=== PATIENT | female | born 2000 | race Caucasian/White ===

== ENCOUNTER 2020-07-03 10:43 | Emergency (ER) | payer OTHER ==
[2020-07-03 11:35] LABS: Bacteria/HPF 2+ HPF (None Seen); Bilirubin Negative (Negative); Blood, Urine Negative (Negative); Clarity Turbid (Clear); Glucose, Urine (Dipstick) 100 mg/dL (Negative); Ketone, Urine Negative (Negative); Leukocyte 250 Leu/uL (Negative); Nitrite Negative (Negative); Protein, Urine (Dipstick) Negative (Neg-Trace); RBC/HPF 0-3 HPF (0-3); Specific Gravity, Urine 1.012 (1.002-1.036); Squamous Epithelial 0-3 HPF (0-3); Urobilinogen Normal mg/dL (Less than 2); pH, Urine 6.5 (5.0-9.0)
[2020-07-03] MEDS ORDERED: Acetaminophen 500 MG TAB ONE (11:35)
[2020-07-03 11:46] LABS: Yeast-Hyphae Rare HPF (None Seen)
== END 2020-07-03 13:01 | disposition home or self-care (01) ==
LOC: ERS 10:43
DX: O99.891 Other specified diseases and conditions complicating pregnancy (principal); R10.9 Unspecified abdominal pain; F17.290 Nicotine dependence, other tobacco product, uncomplicated
CPT/HCPCS: 36415; 76856; 81003; 81015; 84702

== ENCOUNTER 2022-02-11 16:29 | Emergency (ER) | payer BC, OTHER | END 2022-02-11 17:20 | disposition home or self-care (01) | LOC: ERS 16:29 | DX: H66.91 Otitis media, unspecified, right ear (principal); F17.290 Nicotine dependence, other tobacco product, uncomplicated | CPT/HCPCS: 99282 ==

== ENCOUNTER 2024-01-26 08:18 | Emergency (ER) | payer OTHER ==
[2024-01-26] MEDS ORDERED: Acetaminophen 500 MG TAB ONE (08:41)
[2024-01-26] MEDS ORDERED: Lidocaine 4% Patch ONE (08:41)
== END 2024-01-26 09:30 | disposition home or self-care (01) ==
LOC: ERS 08:18
DX: O99.891 Other specified diseases and conditions complicating pregnancy (principal); M79.602 Pain in left arm; M25.561 Pain in right knee; M54.9 Dorsalgia, unspecified; F17.290 Nicotine dependence, other tobacco product, uncomplicated; Z3A.31 31 weeks gestation of pregnancy; W01.198A Fall on same level from slipping, tripping and stumbling with subsequent striking against other object, initial encounter